=== PATIENT | male | born 1960 | race African-American/Black ===

== ENCOUNTER 2017-03-28 03:06 | Emergency (ER) | payer OTHER ==
[~2017-03-28] VITALS: Ht 182.9 cm; Wt 72.7 kg
[2017-03-28 03:45] LABS: HEMATOCRIT 35.3 % (39.0-50.0); HEMOGLOBIN 12.5 g/dl (14.0-18.0); IMMATURE GRANULOCYTES 0.6 % (0.0-1.0); MEAN CELL VOLUME 90.5 fL CALC (80.0-100.0); MEAN CORPUSCULAR HGB 32.1 pG CALC (26.0-32.0); MEAN CORPUSCULAR HGB CONC 35.4 g/L CALC (32.0-36.0); NEUT# 6.18 thou/uL (1.82-7.42); RED BLOOD COUNT 3.9 mill/uL (4.70-6.10); RED CELL DISTRI WIDTH 13.4 % (11.5-15.5)
[2017-03-28] MEDS ORDERED: RENVELA800 MG PO (03:55)
[2017-03-28 03:56] LABS: ALBUMIN 4.4 g/dL (3.2-5.0); BILIRUBIN, TOTAL 0.7 mg/dL (0.0-1.4); CALCIUM 10.2 mg/dL (8.4-10.2); POTASSIUM 4.6 mmol/l (3.5-5.1); TOTAL PROTEIN 8.7 g/dL (6.3-8.2)
[2017-03-28] MEDS ORDERED: KALETRA1 TAB PO (03:56)
[2017-03-28] MEDS ORDERED: MEGESTROL AC20 MG PO (03:58)
[2017-03-28] MEDS ORDERED: ZIAGEN 300 MG300 MG PO (03:59)
[2017-03-28] MEDS ORDERED: HYDRALAZINE50 MG PO (04:00)
[2017-03-28] MEDS ORDERED: AMLODIPINE BESY10 MG PO (04:01)
[2017-03-28 04:03] LABS: ACT PARTIAL THROMBO TIME 22.2 SECONDS (20.0-32.5); CREATININE 6.1 mg/dL (0.7-1.3)
[2017-03-28] MEDS ORDERED: ASPIRIN81 MG PO (04:03)
[2017-03-28] MEDS ORDERED: DIALYVITE800 MG PO (04:03)
[2017-03-28] MEDS ORDERED: VITAMIN D32000 UNIT PO (04:05)
[2017-03-28] MEDS ORDERED: SENSIPAR90 MG PO (04:06)
[2017-03-28] MEDS ORDERED: VIREAD300 MG PO (04:07)
[2017-03-28 06:33] VITALS: BP 116/64
== END 2017-03-28 06:34 | disposition short-term general hospital (02) | DRG 313 ==
LOC: ED 03:06
PROVIDERS: Emergency Medicine
DX: R07.9 Chest pain, unspecified (principal); I12.0 Hypertensive chronic kidney disease with stage 5 chronic kidney disease or end stage renal disease; N18.6 End stage renal disease; Z21 Asymptomatic human immunodeficiency virus [HIV] infection status; R74.8 Abnormal levels of other serum enzymes; R11.2 Nausea with vomiting, unspecified
CPT/HCPCS: S0164

== ENCOUNTER 2017-04-17 20:47 | Emergency (ER) | payer OTHER ==
[~2017-04-17] VITALS: Ht 182.9 cm; Wt 66.0 kg
[~2017-04-17 20:47] MED LIST: AMLODIPINE BESY10 MG PO; ASPIRIN81 MG PO; DIALYVITE800 MG PO; HYDRALAZINE50 MG PO; KALETRA1 TAB PO; MEGESTROL AC20 MG PO; RENVELA800 MG PO; SENSIPAR90 MG PO; VIREAD300 MG PO; VITAMIN D32000 UNIT PO; ZIAGEN 300 MG300 MG PO
[2017-04-17] MEDS ORDERED: KALETRA1 TAB PO (21:18)
[2017-04-17] MEDS ORDERED: MEGACE PO (21:20)
[2017-04-17] MEDS ORDERED: VITAMIN D-32000 UNIT PO (21:21)
[2017-04-17 21:39] LABS: HEMATOCRIT 24.6 % (39.0-50.0); HEMOGLOBIN 8.6 g/dl (14.0-18.0); MEAN CELL VOLUME 91.4 fL CALC (80.0-100.0); NEUT# 5.95 thou/uL (1.82-7.42); RED BLOOD COUNT 2.69 mill/uL (4.70-6.10); RED CELL DISTRI WIDTH 13.6 % (11.5-15.5)
[2017-04-17 21:46] LABS: ALBUMIN 3.8 g/dL (3.2-5.0); BILIRUBIN, TOTAL 0.5 mg/dL (0.0-1.4); CREATININE 4.7 mg/dL (0.7-1.3); TOTAL PROTEIN 7.1 g/dL (6.3-8.2)
[2017-04-17 21:47] LABS: POTASSIUM 5.7 mmol/l (3.5-5.1)
[2017-04-18 00:34] VITALS: BP 116/62
== END 2017-04-18 00:33 | DRG 313 ==
LOC: ED 20:47
PROVIDERS: Emergency Medicine
DX: R07.89 Other chest pain (principal); I12.0 Hypertensive chronic kidney disease with stage 5 chronic kidney disease or end stage renal disease; N18.6 End stage renal disease; Z99.2 Dependence on renal dialysis; Z21 Asymptomatic human immunodeficiency virus [HIV] infection status